=== PATIENT | female | born 1965 | race Caucasian/White ===

== ENCOUNTER 2020-12-19 13:35 | Outpatient (CLI) | payer BC, SELFPAY ==
--- NOTE | ~2020-12-19 | US_ITS ---
US renal BI 12/19/2020 13:33 Procedure: Realtime transabdominal ultrasound of the kidneys and bladder. Indication: Kidney stone Comparison: CT dated 03/16/2015 Findings: Renal echotexture is normal bilaterally without hydronephrosis, contour deforming mass or r enal calculus. The right kidney measures 10.5 cm and left kidney measures 10.7 cm. Bladder within no rmal limits. Impression: 1: Unremarkable renal ultrasound. No stones, masses or hydronephrosis. Reviewed, dictated and finalized at location B. Impression: 1: Unremarkable renal ultrasound. No stones, masses or hydronephrosis.
[2020-12-19 14:10] LABS: Anion Gap 7 mmol/L (8-16); Blood Urea Nitrogen 16 mg/dL (7-17); Calcium 9.2 mg/dL (8.4-10.2); Carbon Dioxide 31 mmol/L (22-30); Chloride 99 mmol/L (98-107); Estimated Glomerular Filt Rate > 60; Glucose 98 mg/dL (65-105); Potassium 3.1 mmol/L (3.4-5.0); Sodium 137 mmol/L (137-145)
== END 2020-12-19 13:36 | disposition home or self-care (01) ==
PROVIDERS: PCP Family Medicine; Visit Provider Obstetrics & Gynecology
DX: N20.0 Calculus of kidney (principal); R10.2 Pelvic and perineal pain
CPT/HCPCS: 36415; 76775; 80048

== ENCOUNTER 2021-03-31 12:33 | Emergency (ER) | payer BC, SELFPAY ==
--- NOTE | ~2021-03-31 | CT_ITS ---
EXAMINATION: CT brain wo con INDICATION: Headache COMPARISON: 12/30/2014 TECHNIQUE: Standard unenhanced head CT. The dose-length product (DLP) was 605.33 mGy-cm. The mA was a djusted according to patient size. Iterative reconstruction technique was employed. FINDINGS: There is no intracranial hemorrhage, acute infarction, or abnormal mass lesion. The ventric les are normal. There is no abnormal mass effect or midline shift. The mejía-white matter differentiat ion is normal. The basal cisterns are patent. The orbits are normal. There is a polyp or mucous reten tion cyst in the right maxillary sinus. There is mild mucosal thickening of the paranasal sinuses. IMPRESSION: 1. No acute intracranial abnormality. Reviewed, dictated and finalized at location B.
--- NOTE | ~2021-03-31 | XR_ITS ---
XR chest 2V DATE: 03/31/2021 12:56 INDICATION: Centralized chest pain. Headache. Hypertension. TECHNIQUE: AP and lateral views COMPARISON: 08/09/2017 CT chest 07/28/2017 two-view chest FINDINGS: Status post anterior cervical spine surgical fusion. Status post cholecystectomy. Heart size appears within normal limits. No hilar or mediastinal enlargement. No pulmonary infiltrate or consolidation, pleural effusion or pulmonary vascular congestion or pneumothorax. IMPRESSION: No active cardiopulmonary disease Reviewed, dictated and finalized at location A.
[2021-03-31 12:31] VITALS: BP 162/96; PULSE 74; RESP 16; TEMP 37.1; O2SAT 99
[2021-03-31 12:36] VITALS: PULSE 54
--- NOTE | 2021-03-31 12:36 | ECG_ITS ---
Measurements Intervals [place] Rate: 53 P: 52 [place]: 145 QRS: 21 QRSD: 87 T: -6 QT: 436 QTc: 410 Interpretive Statements SINUS BRADYCARDIA WITH MARKED SINUS ARRHYTHMIA BORDERLINE ST-T WAVE ABNORMALITY- ANTEROLAT/INF LEADS BASELINE ARTIFACT- AVF, V4-V6 BORDERLINE ECG Electronically Signed On 03-31-2021 13:05:11 CDT by Tyson Toth D.O.
[2021-03-31 13:35] LABS: Basophils Percent Auto 0.3 % (0.2-1.2); Eosinophils Percent Auto 0.3 % (0-4.4); Hemoglobin 14.9 g/dL (12.0-15.0); Immature Granulocyte Absolute 0.08 K/mm3 (0.00-0.031); Immature Granulocyte Percent A 0.7 % (0-0.5); Lymphocytes Absolute Auto 1.64 K/mm3 (0.9-3.2); Lymphocytes Percent Auto 14.3 % (18.3-44.2); Mean Corpuscular HGB Conc 33.1 g/dl (32-36); Mean Corpuscular Hemoglobin 32.6 pg (26-34); Mean Corpuscular Volume 98.5 fl (80-100); Mean Platelet Volume 9.9 fl (7.4-10.4); Monocytes Percent Auto 9.1 % (2.6-8.5); Neutrophils Absolute Auto 8.6 K/mm3 (1.3-6.7); Neutrophils Percent Auto 75.3 % (45.5-73.1); Platelet Count Result 320 k/mm3 (150-375); Red Blood Count 4.57 M/mm3 (4.2-5.4); Red Cell Distribution Width 13.2 % (11.5-14.5); White Blood Count 11.5 K/mm3 (4.5-10.0)
--- NOTE | 2021-03-31 13:41 | ED.CHESTPAIN ---
HPI - Chest Pain General Chief Complaint: Chest Pain Stated Complaint: CP Time Seen by Provider: 03/31/21 12:54 History of Present Illness HPI narrative: Patient presents with epigastric pain. Pain for symptoms started this morning got progressively worse throughout the day. She reports she thought she had a mild stomachache and took Tums. Over this afternoon her symptoms got worse she felt lightheaded like the room was spinning and reports she started sweating all over and had nausea. She was really concerned so called an ambulance and came in for evaluation. During the acute worsening she reported associated headache as well which has still persisted. Reports her chest/epigastric pain has greatly improved. Reports she no longer feels nauseous and she is no longer sweating. She denies any focal areas of numbness she denies recent cough, fevers, congestion. Reports she has had generalized fatigue Related Data Home Medications Medication Instructions Recorded Confirmed alprazolam 1 mg tablet 1 mg PO DAILY 03/24/20 12/15/20 bupropion HCl 150 mg 24 hr tablet, 150 mg PO QAM 03/24/20 12/15/20 extended release diltiazem HCl 240 mg 240 mg PO DAILY 03/24/20 12/15/20 capsule,extended release 24 hr hydrochlorothiazide 50 mg tablet 50 mg PO DAILY 03/24/20 12/15/20 Allergies Allergy/AdvReac Type Severity Reaction Status Date / Time bee venom protein (honey bee) Allergy Severe SWELLING Verified 03/31/21 12:40 adhesive tape Allergy Unknown BLISTERS Verified 03/31/21 12:40 beeswax Allergy Unknown Unknown Verified 03/31/21 12:40 carvedilol Allergy Unknown Unknown Verified 03/31/21 12:40 lisinopril Allergy Unknown Rash Verified 03/31/21 12:40 losartan Allergy Unknown Rash Verified 03/31/21 12:40 tramadol Allergy Unknown SEVERE Verified 03/31/21 12:40 DEPRESSION Wasp Allergy Intermediate SEVERE Uncoded 03/31/21 12:40 INFLAMMATION Review of Systems Review of Systems: CONSTITUTIONAL: Denies fever, chills, or sweats. EYES: Denies visual changes, redness, or discharge. ENT: Denies rhinorrhea, congestion, sore throat, or otalgia. CARDIOVASCULAR: Denies cpalpitations, or edema. RESPIRATORY: Denies cough or dyspnea. GASTROINTESTINAL: Denies abdominal pain, vomiting, or diarrhea. GENITOURINARY: Denies dysuria or hematuria. SKIN: Denies rash or itching. MUSCULOSKELETAL: Denies back pain, joint pain, or myalgia. NEUROLOGIC: Denies numbness, dizziness, or weakness. PSYCHIATRIC: Denies anxiety or depression. All systems reviewed & are unremarkable except as noted in HPI and below PMFSH Past Medical History Medical History Anxiety Hypertension Vaginal delivery x1 Surgical History Surgical History H/O breast biopsy H/O cervical spine surgery Family History Family History Sibling Family history of mental disorder Mother Family history of malignant neoplasm of urinary bladder Father Family history of heart disease in male family member before age 55 Hypertension Patient's father is Family history of cardiovascular disease Grandparent Family history of malignant neoplasm of male breast, Onset Age: 45 Hypertension Family history of liver disease Family history of malignant neoplasm of breast in first degree relative Other Cerebrovascular accident Family history of nephrotic syndrome Social History Social History Smoking status: Former smoker Second hand tobacco smoke exposure: No Smoking end date: 08/22/12 Alcohol intake: current Substance use: unknown Exam Narrative: GENERAL: Well-appearing, well-nourished, and in no acute distress. HEAD: Normocephalic, atraumatic. EYES: PERRLA and EOMI. ENT: Nares clear, no rhinorrhea or epistaxis. Mucous membranes moist. NEC
[2021-03-31 13:50] LABS: INR 0.8; Prothrombin Time 10.6 Seconds (11.1-14.7)
[2021-03-31 13:51] LABS: Anion Gap 12 mmol/L (8-16); Blood Urea Nitrogen 20 mg/dL (7-17); Calcium 9.4 mg/dL (8.4-10.2); Carbon Dioxide 22 mmol/L (22-30); Chloride 100 mmol/L (98-107); Estimated CRCL calculation 100 ml/min; Estimated Glomerular Filt Rate > 60; Glucose 128 mg/dL (65-110); Partial Thromboplastin Time 22.1 SECONDS (22.3-36.8); Potassium 3.3 mmol/L (3.4-5.0); Sodium 134 mmol/L (137-145)
[2021-03-31] MEDS: MECLIZINE HCL 25 MG TABLET PO (13:51)
[2021-03-31] MEDS: SODIUM CHLORIDE 0.9% IV 1,000 ML 999 ML IV CONT (13:51)
[2021-03-31 13:53] VITALS: BP 147/95; PULSE 79; RESP 14; O2SAT 100
[2021-03-31 14:01] LABS: Troponin I < 0.012 ng/mL (0.000-0.034)
[2021-03-31 14:42] VITALS: BP 143/94; PULSE 65; RESP 18; O2SAT 100
[2021-03-31 14:52] LABS: Add Urine Microscopic? YES; Appearance Urine Clear (Clear); Bilirubin Urine Negative (Negative); Blood Urine Negative (Negative); Color Urine Yellow (Yellow); Glucose Urine UA Negative (Negative); Ketones Urine Trace mg/dL (Negative); Leukocyte Esterase Ur Negative LEU/UL (Negative); Mucus Urine Rare /lpf; Nitrate Urine Negative (Negative); Protein Urine Negative (Negative); RBC Urine 0-2 /hpf (0-2); Specific Grav Ur 1.019 (1.001-1.035); Squamous Epithelial Cell Urine Rare /hpf (Few); Urobilinogen Urine Negative mg/dL (<2.0); WBC Urine 0-3 /hpf
[2021-03-31] MEDS: diphenhydrAMINE HCl INJ 50 MG/ML VIAL 25 MG IV PUSH (15:04)
[2021-03-31] MEDS: PROCHLORPERAZINE EDISYLATE 10 MG/2 ML VIAL IM (15:04)
--- NOTE | 2021-03-31 15:48 | PC.NURSE ---
Patient's daughter Jess requested updates about her patient's status.
[2021-03-31 15:54] LABS: Alanine Aminotransferase 30 U/L (4-35); Albumin Level 5.1 g/dL (3.5-5.1); Alkaline Phosphatase 54 U/L (38-126); Aspartate Amino Transferase 27 U/L (14-36); Bilirubin,Total 0.9 mg/dL (0.2-1.3); Lipase 156 U/L (23-300)
[2021-03-31 16:12] VITALS: BP 112/73; PULSE 63; RESP 18; O2SAT 100
[2021-03-31 16:40] LABS: Troponin I < 0.012 ng/mL (0.000-0.034)
[2021-03-31 17:06] VITALS: BP 118/79; PULSE 68; RESP 18; O2SAT 100
== END 2021-03-31 17:45 | disposition home or self-care (01) ==
PROVIDERS: Emergency Medicine; Emergency Provider Emergency Medicine; PCP Family Medicine
DX: R07.9 Chest pain, unspecified (principal); R51.9 Headache, unspecified
CPT/HCPCS: 36415; 70450; 71046; 80048; 80076; 81001; 83690; 84484; 85025; 85610; 85730; 93005; 96361; 96365; 96372; 96375; 99284; A9270; J0131; J0780; J1200; J7030

== ENCOUNTER → 2021-07-06 10:16 | Outpatient (CLI) | payer BC, SELFPAY ==
--- NOTE | ~2021-07-06 | CT_ITS ---
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 TECHNIQUE: Computed tomography (CT) of the abdomen and pelvis was performed without intravenous contr ast. CT of the abdomen and pelvis was then performed with a total of 130 mL Omnipaque-350 intravenous contrast using a double-bolus technique for simultaneous opacification of the renal parenchyma and r enal collecting system. The dose-length product was 1450.11 mGy-cm. COMPARISON: 03/16/2015 FINDINGS: CT UROGRAM: Lung bases are clear. Heart size is normal. No pericardial or pleural effusion. Cholecystectomy clips at the gallbladder fossa. Liver, spleen, pancreas, bilateral adrenal glands and right kidney are nor mal. Small region of cortical scarring at the upper pole of the left kidney likely sequela of interva l infarct or infection. No urolithiasis or hydronephrosis. No urothelial irregularities identified al julio c the contrast opacified portions of the bilateral renal collecting systems and ureters. A small se gment of the distal right ureter and mid left ureter are decompressed and unopacified. Bowels includi ng the appendix are normal. Bladder is normal. Anteverted uterus and bilateral adnexa are unremarkabl e. No free intraperitoneal gas or fluid. No pathologically enlarged abdominal or pelvic lymphadenopat hy. Mild to moderate thoracolumbar spondylosis. IMPRESSION: 1. Small region of cortical scarring at the upper pole of the left kidney. Otherwise normal kidneys, ureters and bladder. No urolithiasis or urothelial irregularities. Reviewed, dictated and finalized at location A. ER PEELER IMPRESSION: 1. Small region of cortical scarring at the upper pole of the left kidney. Othe rwise normal kidneys, ureters and bladder. No urolithiasis or urothelial irregu larities.
--- NOTE | ~2021-07-06 | XR_ITS ---
EXAMINATION: XR abdomen/kub 1V DATE: 07/06/2021 11:14 INDICATION: Neoplasm of uncertain behavior of bladder. TECHNIQUE: A supine view of the abdomen on 2 radiographs was obtained. COMPARISON: CT abdomen and pelvis 07/06/2021 FINDINGS: There are no dilated loops of bowel. There is no urolithiasis. Surgical clips in the right upper quadrant are likely from cholecystectomy. IMPRESSION: 1. No urolithiasis. Reviewed, dictated and finalized at location A. SPINNER IMPRESSION: 1. No urolithiasis.
[2021-07-06 10:40] LABS: Estimated Glomerular Filt Rate > 60
== END ==
PROVIDERS: PCP Family Medicine; Visit Provider Urology
DX: D41.4 Neoplasm of uncertain behavior of bladder (principal)
CPT/HCPCS: 74018; 74178; Q9967

== ENCOUNTER → 2022-09-02 17:44 | Outpatient (CLI) | payer OTHER, SELFPAY ==
--- NOTE | ~2022-09-02 | XR_ITS ---
XR chest 2V DATE: 09/02/2022 18:06 INDICATION: Cough. Bronchitis. TECHNIQUE: 2 views COMPARISON: 03/31/2021 AP and lateral chest FINDINGS: Status post anterior cervical spine surgical fusion. Normal heart size. No hilar or mediastinal enlargement. No pulmonary infiltrate or consolidation, ple ural effusion or pulmonary vascular congestion or pneumothorax. Status post cholecystectomy. IMPRESSION: No active cardiopulmonary disease or significant change since 03/31/2021 Reviewed, dictated and finalized at location A. ING WEAVER IMPRESSION: No active cardiopulmonary disease or significant change since 2020
== END ==
PROVIDERS: PCP Family Medicine; Visit Provider Family Medicine
DX: J40 Bronchitis, not specified as acute or chronic (principal)
CPT/HCPCS: 71046

== ENCOUNTER → 2022-10-04 10:54 | Outpatient (CLI) | payer OTHER, SELFPAY ==
--- NOTE | ~2022-10-04 | CT_ITS ---
EXAMINATION: CT diagnostic chest wo con DATE: 10/04/2022 11:10 INDICATION: Chronic persistent cough and fever TECHNIQUE: Computed tomography (CT) of the chest was performed without intravenous contrast. The dose -length product (DLP) was 224.30 mGy-cm. Automated exposure control and iterative reconstruction tech [employer] were employed. COMPARISON: 08/09/2017; chest radiograph, 09/02/2022 FINDINGS: The lungs are free of acute opacities. No pleural effusion or pneumothorax. No pathological ly enlarged thoracic lymph nodes are identified. The heart size is normal. There is mild thoracic spo ndylosis. There are changes of anterior fusion procedure in the lower cervical spine. The gallbladder is surgically absent. IMPRESSION: 1. No CT correlate for the patient's symptoms. Reviewed, dictated and finalized at location B. CAL SECRETARY RECEPTIONIST
== END ==
PROVIDERS: PCP Family Medicine; Visit Provider Family Medicine
DX: R05.3 Chronic cough (principal)
CPT/HCPCS: 71250

== ENCOUNTER → 2022-11-08 14:40 | Outpatient (CLI) | payer OTHER, SELFPAY ==
--- NOTE | ~2022-11-08 | XR_ITS ---
XR lumbar spine min 4V DATE: 11/08/2022 15:06 INDICATION: Worsening chronic low back pain TECHNIQUE: AP, lateral, coned lateral lumbosacral views. Flexion and extension lateral standing views COMPARISON: None FINDINGS: Approximately 2.8 mm anterolisthesis at L3-4, increased to approximately 4.5 mm in flexion, reduced to 1.7 mm in extension. There is prominent degenerative change at the apophyseal joints particularly at L3-4, L4-5 and L5-S1. Moderately prominent degenerative disc disease L3-4 and L4-5. Remaining lumbar and lumbosacral inters paces are relatively preserved. Diffuse osteopenia. No fracture or bone destruction. The included lower thoracic and lumbar pedicles are intact. The sacrum joints appear normal. Status post cholecystectomy. IMPRESSION: Grade 1 anterolisthesis at L3-4 due to degenerative change at the apophyseal joints Moderately prominent degenerative disease at L3-4 and L4-5 Reviewed, dictated and finalized at location B. IMPRESSION: Grade 1 anterolisthesis at L3-4 due to degenerative change at the a pophyseal joints Moderately prominent degenerative disease at L3-4 and L4-5
== END ==
PROVIDERS: PCP Family Medicine; Visit Provider Physical Medicine & Rehabilitation
DX: M54.50 Low back pain, unspecified (principal); M51.36 Other intervertebral disc degeneration, lumbar region
CPT/HCPCS: 72110

== ENCOUNTER → 2023-05-13 11:42 | Outpatient (CLI) | payer BC, SELFPAY ==
--- NOTE | ~2023-05-13 | XR_ITS ---
Clinical Indication: Preprocedure clearance PA and lateral views of the chest: Comparison: 09/02/2022 Findings: The lungs are clear, without evidence of focal consolidation or pleural effusion. Cardiome diastinal silhouette is within normal limits. Stable cervical spine fixation hardware. Impression: Clear lungs. Reviewed, dictated and finalized at location . Impression: Clear lungs.
== END ==
DX: E55.9 Vitamin D deficiency, unspecified (principal); Z01.818 Encounter for other preprocedural examination
CPT/HCPCS: 71046